=== PATIENT | male | born 1985 | race Two or more races ===

== ENCOUNTER 2019-02-01 19:12 | Emergency (ER) | payer SELFPAY ==
[~2019-02-01] VITALS: Ht 162.6 cm; Wt 61.2 kg
[2019-02-01 19:25] VITALS: BP 108/69
[2019-02-01] MEDS ORDERED: TRIUMEQ 600-501 EACH PO (19:35)
[2019-02-01 19:40] VITALS: BP 108/69
--- NOTE | 2019-02-01 19:40 | NUR ---
ER DISCHARGE NOTE: Patient is cleared to be discharged per ERMD, pt is aox4, on room air, with stable vital signs. pt was given dc and prescription instructions, pt was able to verbalize understanding, pt id band removed without complications. pt is able to ambulate with steady gait. pt took all belongings. pt is under police custody, denies any distress, pain, or discomforts, here for med refill for HIV meds.
--- NOTE | 2019-02-02 22:57 | Emergency Room Report ---
History of Present Illness General Chief Complaint: Medical Clearance Source: Patient Present Illness HPI 33-year-old male presents ED for evaluation. Is in police custody. He is here for medical clearance. Patient has no complaints however has history of HIV and states he needs refill of his medication. Takes Triumeq. He has not had the medication in 1 week. States he feels okay otherwise. No other aggravating relieving factors. Denies any other associated symptoms Allergies: Coded Allergies: ACETAMINOPHEN (Verified Allergy, Unknown, 02/01/19) HYDROCODONE (Verified Allergy, Unknown, 02/01/19) PSEUDOEPHEDRINE (Verified Allergy, Unknown, 02/01/19) Patient History Past Medical History: asthma Past Surgical History: none Pertinent Family History: none Social History: Denies: smoking, alcohol use, drug use Immunizations: UTD Reviewed Nursing Documentation: PMH: Agreed; PSxH: Agreed Nursing Documentation-PMH Hx Asthma: Yes Review of Systems All Other Systems: negative except mentioned in HPI Physical Exam Vital Signs Date Time Temp Pulse Resp B/P (MAP) Pulse Ox O2 Delivery O2 Flow Rate FiO2 02/01/19 19:16 98.1 72 16 108/69 (82) 98 Room Air Sp02 EP Interpretation: reviewed, normal General Appearance: no apparent distress, alert, GCS 15, non-toxic Head: normocephalic Eyes: bilateral eye normal inspection, bilateral eye PERRL ENT: normal ENT inspection Neck: normal inspection Respiratory: normal inspection Cardiovascular #1: normal inspection Gastrointestinal: normal inspection Rectal: deferred Genitourinary: no CVA tenderness Musculoskeletal: normal inspection Neurologic: alert, oriented x3, responsive, motor strength/tone normal, sensory intact, speech normal Psychiatric: normal inspection Skin: no rash Lymphatic: no adenopathy Medical Decision Making Diagnostic Impression: Primary Impression: Medication refill Additional Impression: Medical clearance for incarceration ER Course Hospital Course 33-year-old male presents to ED for intermediate clearance. requesting refill of his HIV meds Clinical course Patient placed on stretcher. Handcuffs. After initial history, physical exam reveals a young male in no acute distress. physical exam was unremarkable. We will provide patient with refill of his Triumeq. Encourage the importance to the police officers of patient receiving his medication prescription immediately. They agreed. I believe patient be safely discharged into police custody. Diagnosis - medical clearance for incarceration, medication refill stable and discharged into police custody. given rx for triumeq. Last Vital Signs Date Time Temp Pulse Resp B/P (MAP) Pulse Ox O2 Delivery O2 Flow Rate FiO2 02/01/19 19:40 98.1 16 108/69 98 Room Air 02/01/19 19:25 72 Status: improved Disposition: D/C TO LAW ENFORCEMENT IN CUST Condition: Stable Scripts Abacavir/Dolutegravir/Lamivudi (Triumeq 600-50-300 mg Tablet) 1 Each Tablet 1 EACH PO DAILY, #30 TAB Prov: Rowdy Montalvo MD 02/01/19 Referrals: NOT CHOSEN IPA/,REFERRING (PCP) Macrina Woods [facility] Departure Forms: Alf Clearance Patient Instructions: Medicine Refill at the Emergency Department Additional Instructions: patient MUST have this prescription filled immediately Rowdy Montalvo MD Feb 02, 2019 22:57
== END 2019-02-01 19:45 ==
LOC: EMR 19:35
DX: B20 Human immunodeficiency virus [HIV] disease (principal); Z76.0 Encounter for issue of repeat prescription; J45.909 Unspecified asthma, uncomplicated; Z88.6 Allergy status to analgesic agent; Z88.8 Allergy status to other drugs, medicaments and biological substances
CPT/HCPCS: 99282